=== PATIENT | male | born 1975 | race Caucasian/White ===

== ENCOUNTER 2020-06-16 12:31 | Outpatient (CLI) | payer BC, SELFPAY ==
[2020-06-16 23:23] LABS: SARS-CoV-2 RNA PCR Negative
== END 2020-06-16 12:32 | disposition home or self-care (01) ==
PROVIDERS: PCP Family Medicine; Visit Provider Family Medicine
DX: Z20.822 Contact with and (suspected) exposure to COVID-19 (principal)
CPT/HCPCS: C9803; U0003; U0005

== ENCOUNTER 2022-01-04 07:29 | Outpatient (CLI) | payer BC, SELFPAY ==
[2022-01-04 08:12] LABS: SARS-CoV-2 Ag Positive (Negative)
== END 2022-01-04 07:30 | disposition home or self-care (01) ==
PROVIDERS: PCP Family Medicine; Visit Provider Nurse Practitioner Family
DX: U07.1 COVID-19 (principal)
CPT/HCPCS: 87426; C9803

== ENCOUNTER 2022-04-13 15:37 | Emergency (ER) | payer BC, SELFPAY ==
--- NOTE | ~2022-04-13 | CT_ITS ---
EXAMINATION: CT abdomen pelvis w con INDICATION: Generalized abdominal pain TECHNIQUE: Computed tomographic images of the abdomen and pelvis were obtained after the administrati on of 100 cc of Omnipaque 350 intravenous contrast. The dose-length product (DLP) was 336.68 mGy-cm. Automated exposure control and iterative reconstruction technique were employed. COMPARISON: 01/15/2018 FINDINGS: Right lower lobe nodules measuring up to 2 mm are not significantly changed and most consis tent with old granulomatous disease. The heart size is normal. Punctate calcifications in an otherwis e normal spleen likely represent healed granulomatous disease. The liver, pancreas, gallbladder, and adrenal glands are normal. The kidneys are unremarkable. There is calcified atherosclerosis of the ao rta and many of the other arteries. No pathologically enlarged abdominal or pelvic lymph nodes are id entified. There is circumferential wall thickening and intramural edema involving a long segment of t he ileum and terminal ileum. Some small bowel loops are mildly dilated. No free intraperitoneal gas i s identified. There is moderate lumbar spondylosis. IMPRESSION: 1. Long segment of bowel wall thickening, intramural edema, and mild distention involving the ileum a nd terminal ileum. Findings could reflect infection, inflammatory bowel disease, or bowel ischemia. Reviewed, dictated and finalized at location [facility] [employer] IMPRESSION: 1. Long segment of bowel wall thickening, intramural edema, and mild distention involving the ileum and terminal ileum. Findings could reflect infection, infl ammatory bowel disease, or bowel ischemia.
[2022-04-13 17:17] VITALS: BP 133/89; PULSE 70; RESP 20; TEMP 36.7; O2SAT 97
[2022-04-13] MEDS: PANTOPRAZOLE SODIUM IV 40 MG VIAL IV PUSH (17:34)
[2022-04-13 17:39] LABS: Basophils Absolute Auto 0.02 K/mm3 (0.00-0.10); Basophils Percent Auto 0.3 % (0.0-1.0); Eosinophils Absolute Auto 0.14 K/mm3 (0.02-0.50); Eosinophils Percent Auto 1.8 % (1.0-6.0); Hematocrit 43.5 % (40.0-54.0); Hemoglobin 15.3 g/dL (14.0-18.0); Immature Granulocyte Absolute 0.02 K/mm3 (0.00-0.00); Immature Granulocyte Percent A 0.3 % (0.0-0.0); Lymphocytes Absolute Auto 2.54 K/mm3 (1.10-4.50); Lymphocytes Percent Auto 32.1 % (18.0-42.0); Mean Corpuscular HGB Conc 35.2 g/dL (32.0-36.0); Mean Corpuscular Hemoglobin 34.6 pg (27.0-31.0); Mean Corpuscular Volume 98.4 fL (78.0-102.0); Monocytes Absolute Auto 0.53 K/mm3 (0.10-0.90); Monocytes Percent Auto 6.7 % (2.0-11.0); Neutrophils Absolute Auto 4.7 K/mm3 (1.7-7.2); Neutrophils Percent Auto 58.8 % (50.0-70.0); Platelet Count Result 181 K/mm3 (150-420); Red Blood Count 4.42 M/mm3 (4.70-6.10); Red Cell Distribution Width 12.6 % (11.6-14.4); White Blood Count 7.9 K/mm3 (4.8-10.8)
[2022-04-13 17:57] LABS: Alanine Aminotransferase 10 U/L (16-63); Albumin Level 3.7 g/dL (3.4-5.0); Alkaline Phosphatase 91 U/L (46-116); Anion Gap 7 mmol/L (8-16); Aspartate Amino Transferase 14 U/L (15-37); Bilirubin,Total 0.3 mg/dL (0.00-1.00); Blood Urea Nitrogen 10 mg/dL (7-18); Calcium 8.9 mg/dL (8.5-10.1); Carbon Dioxide 28 mmol/L (21-32); Chloride 106 mmol/L (98-108); Estimated CRCL calculation 91 ml/min; Estimated Glomerular Filt Rate > 60; Glucose 90 mg/dL (70-99); Osmolality Calculated 291 mOsm/kg (285-295); Potassium 4.1 mmol/L (3.5-5.1); Sodium 141 mmol/L (136-145)
[2022-04-13 17:59] LABS: CRP < 0.5 mg/dL (0.0-0.9)
[2022-04-13 18:02] LABS: Lactic Acid Reflex 0.6 mmol/L (0.4-2.0)
[2022-04-13 18:46] LABS: Occult Blood Negative (Negative)
--- NOTE | 2022-04-13 19:06 | ED.ABDPAIN ---
HPI - Abdominal Pain General Chief Complaint: Abdominal Pain Stated Complaint: cramps, darker stools Time Seen by Provider: 04/13/22 16:25 Source: patient Mode of arrival: ambulatory Limitations: no limitations History of Present Illness HPI narrative: This is a 46-year-old gentleman with no significant past medical history that presents with crampy abdominal pain and diarrhea with some some nausea with no vomiting no dysuria no chest pain no shortness of breath no fever chills no flank pain. MD elicited complaint: abdominal pain Onset (ago): day(s) Pain Consistency: intermittent Location: diffuse Severity: moderate Quality: cramping Related Data Home Medications Medication Instructions Recorded Confirmed No Home Medications 04/13/22 04/13/22 Allergies Allergy/AdvReac Type Severity Reaction Status Date / Time No Known Allergies Allergy Mild Verified 04/13/22 17:22 Review of Systems Review of Systems: All systems reviewed & are unremarkable except as noted in HPI and below PMFSH Past Medical History Medical History Patient denies medical problems Family History Family History Other Family history of arthritis Family history of malignant neoplasm Hypertension Social History Social History Smoking status: Heavy tobacco smoker Alcohol intake: current Exam Const: General: healthy appearing Nutritional Appearance: well nourished Limitations: no limitations HENMT: Head: normal to inspection Face/Nose/Sinus: Normal external nose present Eyes: Conjunctivae: conjunctivae normal Direct Ophthalmoscopy: no photophobia Neck: Neck: normal visual inspection Chest: Chest palpation & inspection: normal inspection of the chest Resp: Effort & Inspection: normal respiratory effort Auscultation: clear to auscultation bilaterally Cardio: Rate: regular rate Rhythm: regular rhythm GI: GI Palp: Yes Soft to palpation Auscultation: normal bowel sounds : General: Yes bladder normal to palpation Urinary Catheter: Urinary Catheter: patent and draining Skin: General skin exam: normal color Rashes: no rashes Wounds: no wounds Neuro: General: patient oriented x3 and moves all extremities Cranial nerves: Yes Nystagmus not present Speech: normal speech Extrem: General: normal to inspection Psych: Mental Status: mental status grossly normal Course Course Emergency Course: labs reviewed with patient as well as CT scan of the abdomen patient will receive a dose of Cipro and Flagyl. Vital Signs Vital signs: Vital Signs Temperature 36.7 C 04/13/22 17:17 Pulse Rate 70 04/13/22 17:17 Respiratory Rate 20 04/13/22 17:17 Blood Pressure 133/89 04/13/22 17:17 Pulse Oximetry 97 04/13/22 17:17 Oxygen Delivery Room Air 04/13/22 17:17 Temperature 36.7 C 04/13/22 17:17 Pulse Rate 70 04/13/22 17:17 Respiratory Rate 20 04/13/22 17:17 Blood Pressure 133/89 04/13/22 17:17 Pulse Oximetry 97 04/13/22 17:17 Oxygen Delivery Room Air 04/13/22 17:17 MDM - Abdominal Pain Lab Data 04/13/22 17:33 04/13/22 17:33 Labs: Lab Results 04/13/22 04/13/22 04/13/22 Range/Units 17:33 17:33 17:33 WBC 7.9 (4.8-10.8) K/mm3 RBC 4.42 L (4.70-6.10) M/mm3 Hgb 15.3 (14.0-18.0) g/dL Hct 43.5 (40.0-54.0) % MCV 98.4 (78.0-102.0) fL MCH 34.6 H (27.0-31.0) pg MCHC 35.2 (32.0-36.0) g/dL RDW 12.6 (11.6-14.4) % Plt Count 181 (150-420) K/mm3 MPV 9.0 (8.7-11.0) fl Immature Gran % (Auto) 0.3 H (0.0-0.0) % Neut % (Auto) 58.8 (50.0-70.0) % Lymph % (Auto) 32.1 (18.0-42.0) % Pierce % (Auto) 6.7 (2.0-11.0) % Eos % (Auto) 1.8 (1.0-6.0) % Baso % (Auto) 0.3 (0.0-1.0) % Lymph # (Auto) 2.54 (1.10-4.50) K/mm3 Pierce #
[2022-04-13] MEDS: CIPROFLOXACIN 500 MG TAB PO (19:36)
[2022-04-13] MEDS: metroNIDAZOLE 250 MG TABLET 500 MG PO (19:36)
[2022-04-13 19:51] VITALS: BP 120/80; PULSE 70; RESP 18; TEMP 36.6; O2SAT 99
== END 2022-04-13 19:53 | disposition home or self-care (01) ==
PROVIDERS: Emergency Provider Emergency Medicine; PCP Family Medicine
DX: K52.9 Noninfective gastroenteritis and colitis, unspecified (principal); F17.210 Nicotine dependence, cigarettes, uncomplicated
CPT/HCPCS: 36415; 74177; 80053; 83605; 85025; 86140; 96374; 99284; A9270; C9113; Q9967

== ENCOUNTER 2022-09-06 16:37 | Emergency (ER) | payer BC, SELFPAY ==
[2022-09-06 16:37] VITALS: BP 146/74; PULSE 90; RESP 15; TEMP 35.8; O2SAT 98
--- NOTE | 2022-09-06 16:45 | ED.WOUNDLAC ---
HPI - Wound/Laceration General Chief Complaint: Wound/Laceration Stated Complaint: right wrist laceration Time Seen by Provider: 09/06/22 16:45 Source: patient Mode of arrival: ambulatory Limitations: no limitations History of Present Illness HPI narrative: 47-year-old male, smoker presents to the ER with -- 2 cm laceration over the right forearm and 4 cm abrasion over distal right forearm. he was attempting to push the when his hand went through the glass and cause the lacerations. no other injuries noted. patient is not up-to-date on his tetanus. Onset (ago): hour(s) ( 1 hour ago) Location: other ( Distal right forearm) Extremity Location: Right: forearm Place: home Patient tetanus UTD: No Context: accidental Associated symptoms: none Related Data Home Medications Medication Instructions Recorded Confirmed No Home Medications 09/06/22 09/06/22 Allergies Allergy/AdvReac Type Severity Reaction Status Date / Time No Known Allergies Allergy Mild Verified 09/06/22 16:58 Review of Systems Review of Systems: All systems reviewed & are unremarkable except as noted in HPI and below Constitutional: Constitutional: Reports as per HPI and Reports no additional constitutional complaints Eyes: Eyes: Reports as per HPI and Reports no additional eye complaints ENT: Reports system reviewed and no additional complaints, except as documented and Reports as per HPI Cardiovascular: Cardiovascular: Reports as per HPI and Reports no additional cardiovascular complaints Respiratory: Respiratory: Reports as per HPI and Reports no additional respiratory complaints Gastrointestinal: Gastrointestinal: Reports as per HPI and Reports no additional gastrointestinal complaints Genitourinary: Genitourinary: Reports no additional male genitourinary complaints and Reports as per HPI Musculoskeletal: Musculoskeletal: Reports no additional musculoskeletal complaints and Reports as per HPI Integumentary/Breasts: Skin/Breast: Reports system reviewed and no additional complaints, except as docu and Reports as per HPI Comments: 2 cm full-thickness skin laceration over the distal right forearm Neurologic: Reports system reviewed and no additional complaints, except as documented and Reports as per HPI Psychiatric: Psychiatric: Reports no additional psychiatric complaints and Reports as per HPI Endocrine: Endocrine: Reports no additional endocrine complaints and Reports as per HPI Hematologic/Lymphatic: Hematologic/Lymphatic: Reports no additional hematologic/lymphatic complaints and Reports as per HPI Allergic/Immunologic: Allergic/Immunologic: Reports no additional allergic/immunologic complaints and Reports as per HPI PMFSH Past Medical History Medical History Patient denies medical problems Family History Family History Other Family history of arthritis Family history of malignant neoplasm Hypertension Social History Social History Smoking status: Heavy tobacco smoker Alcohol intake: current Exam Const: General: healthy appearing Nutritional Appearance: well nourished Orientation/consciousness: patient oriented x3 Limitations: no limitations HENMT: Head: normal to inspection Ears: external ears normal Face/Nose/Sinus: Normal external nose present Face and sinus: normal facial exam Throat: posterior oropharynx normal Eyes: Conjunctivae: conjunctivae normal Pupils: Equal, round and reactive pupils present EOM: EOMs intact bilaterally Direct Ophthalmoscopy: no photophobia Neck: Neck: normal visual inspection, no lymphadenopathy and no meningeal signs Chest: Chest palpation & inspection: normal inspection of the chest Resp: Effort & Inspection: normal respiratory effort Auscultation: clear to auscultation bilaterally Cardio: Rate
[2022-09-06] MEDS: TETANUS,DIPHTHERIA,AC PERTUSSIS ADULT 0.5 ML (ADACEL) IM (17:09)
[2022-09-06] MEDS: LIDOCAINE HCL 1% LOCAL INJ 10 ML VIAL 3 ML INFILTRATE (17:09)
--- NOTE | 2022-09-06 17:32 | PC.NURSE ---
Dressing to right wrist. Heather and skyla gauze.
[2022-09-06 18:04] VITALS: BP 138/78; PULSE 82; RESP 16; O2SAT 98
== END 2022-09-06 18:05 | disposition home or self-care (01) ==
PROVIDERS: Emergency Provider Internal Medicine Critical Care Medicine; PCP Family Medicine
DX: S61.512A Laceration without foreign body of left wrist, initial encounter (principal); F17.210 Nicotine dependence, cigarettes, uncomplicated; Z23 Encounter for immunization; W25.XXXA Contact with sharp glass, initial encounter
CPT/HCPCS: 12001; 90715; 99282